=== PATIENT | male | born 1990 | race Hispanic/Latino ===

== ENCOUNTER 2016-08-21 01:10 | Inpatient (IN) | payer OTHER ==
[~2016-08-21] VITALS: Ht 157.5 cm; Wt 140.8 kg
[2016-08-21] VITALS (16 sets, daily range): BP systolic 110–177; BP diastolic 54–106; PULSE 90–130; RESP 16–28; O2SAT 88–100
--- NOTE | 2016-08-21 01:26 | ED.REPORT ---
HPI-Overdose/Alcohol Toxicity Date of Service Aug 21, 2016 ED Provider: Andre Zazueta MD Patient is a 25 year old male with a history of polysubstance abuse who presents to the ED after an accidental drug overdose this morning. Patient was found to be unresponsive by his significant other, with pinpoint pupils. He was given 2mg nasal Narcan by EMS, with the patient becoming more responsive after administration. EMS believe that he aspirated, finding vomit in his mouth and an O2 sat is in the 80s. Per EMS report the patient admitted to heroin use, in addition to "other stuff". On arrival to the ED, the patient is awake and alert. He reports taking Suboxone this evening, in addition to 6x tablets of Neurontin. Patient admits to using more Neurontin than what he is prescribed. Patient denies using IV heroin and states that he has not used heroin or other opiates for some time. Patient states that the Suboxone was prescribed to him and he was not aware that he should not mix it with Neurontin. He does not remember where he was prescribed Suboxone. History is somewhat limited by his sedated state. Patient's significant other was later present in the ED. She confirms that patient has a history of heroin abuse, but she is not aware of any current narcotic abuse. Patient has informed the patient previously that if he starts using again she will leave him. She states that he has only been going to appointments at [facility] and the [facility]. She is not aware of the patient being prescribed Suboxone and does not believe he has ever been to [facility], [facility], or any other facility that prescribes Suboxone. Nursing Notes Stated Complaint: UNRESPONSIVE, HEROIN Chief Complaint: Substance Abuse Nursing Notes Reviewed: Yes Allergies: Uncoded Allergies: STRAWBERRIES (Allergy, Severe, anaphylaxsis, 08/21/16) General Time Seen by Provider: 01:25 Chief Complaint Drug overdose Modifying Factors: Accidental Hx Obtained From: Patient, EMS Unable to Obtain Hx: Intoxicated Arrived By: Ambulance Onset Occurred: 1 - 4 hours ago Symptom Duration: Since onset Severity: Current: No pain currently Severity: Maximum: No pain Recent Healthcare: No recent doctor visit, No recent hospitalization Similar Sx Previous: No Past Medical History Past Medical History Reports: IV Drug use, Morbid Obesity Past Surgical History none reported Smoking History Current Every Day Smoker Social History Alcohol Use: "Social" Drug Use: IV drugs Other Social History: Good social support, Local resident Ambulatory Status Independent Review of Systems Unable to Obtain ROS Patient condition, Intoxicated (limited by sedation) Physical Exam Initial Vital Signs Vital Signs (First) Date Time Temp Pulse Resp B/P Pulse Ox O2 Delivery O2 Flow Rate FiO2 08/21/16 01:16 36.7 109 20 177/104 100 Nasal Cannula 3.5 Initial VS: Reviewed, Vital signs abnormal Neck: Supple, Full range of motion Extremities: Vascular intact, Neuro intact, No swelling Skin: Warm, Dry, No cyanosis General/Constitutional: Awake Alertness: Positive: Somnolent (but arousable) Appearance / Presentation: Positive: Obese, morbidly Respiratory / Chest: Breath sounds NL, Breath sounds = bilat, No respiratory distress no accessory muscle use or tachypnea Cardiovascular: Regular rhythm, Heart sounds NL, No murmurs Heart Rate / Rhythm: Positive: Tachycardia (mild) Abdomen: Soft, Non-tender Neurologic: No motor deficits, No sensory deficits Psychiatric: Affect NL, Mood NL Head / Eyes: Atraumatic, Normocephalic Pupils: Positive: Pinpoint (1mm) ENT: Airway patent, Mucous membranes moist Skin: Warm, Dry Rash / Lesion Pattern: Negative: Track camargo (no inject sites noted) Interpretation & Diagnostics Interpretation & Diagnostics: Urine Drug Screen: Positive for opiates and cocaine, all else negative. Lab Results Interpretation Result Diagram: 08/21/16 0322 08/21/16 0322 Test 08/21/16 03:22 08/21/16 05:55 White Blood Count 12.6th/mm3 (3.8-10.1) Red Blood Count 5.25mil/mm3 (4.40-5.80) Hemoglobin 16.0g/dL (13.8-17.2) Hematocrit 46.1% (41.0-50.0) Mean Corpuscular Volume 87.8fL (81-100) Mean Corpuscular Hemoglobin 30.5pg (27.0-35.0) Mean Corpuscular Hemoglobin Concent 34.7% (32.0-37.0) Red Cell Distribution Width 14.1% (12.3-15.4) Platelet Count 261bil/L (150-400) Neutrophils (%) (Auto) 85.2% (40-74) Lymphocytes (%) (Auto) 9.3% (14-46) Monocytes (%) (Auto) 4.4% (4-12) Eosinophils (%) (Auto) 0.3% (0-5) Basophils (%) (Auto) 0.2% (0-3) Sodium Level 137mEq/L (134-144) Potassium Level 3.8mEq/L (3.5-5.2) Chloride Level 97mEq/L (97-108) Carbon Dioxide Level 24mmol/L (18-29) Blood Urea Nitrogen 18mg/dL (6-20) Creatinine 0.73mg/dL (0.76-1.27) Estimat Glomerular Filtration Rate 138mL/min (>59) Glucose Level 140mg/dL (60-99) Calcium Level 9.0mg/dL (8.5-10.1) Magnesium Level 2.1mg/dL (1.6-2.6) Total Bilirubin 0.3mg/dL (0.0-1.2) Aspartate Amino Transf (AST/SGOT) 50U/L (0-50) Alanine Aminotransferase (ALT/SGPT) 75U/L (0-44) Alkaline Phosphatase 89U/L (25-150) Troponin T 0.010ug/L (0.0-0.011) Total Protein 7.9g/dL (6.4-8.4) Albumin 4.5g/dL (3.4-5.0) Hold Rowan Top Tube Received (Received) Lab values outside NL range: no clinical significance. Lab Results Interpretation: Elevated white blood ECG Interpretation ECG Interpretation: Sinus tachycardia Time: 01:20 Interpreted by: ED physician Normal ECG Interpretation: No acute ischemic changes, Normal QRS X-Ray Chest Interpretation Chest Xray Interpretation: Impression: Peribronchial cuffing. No definite infiltrate. View: Portable Interpretation / Wet Read by: Wet read ED physician Chest Xray Interpretation: Impression: No definite infiltrate. Peribronchial cuffing. View: Portable (Repeat) Interpretation / Wet Read by: Wet read ED physician Reviewed Previous Films: No change Re-Eval/Medical Decision Med Decision/Clinical Course 25-year-old male who was found down unconscious with poor respiratory effort. O2 saturation was 78%. He vomited and was felt by the paramedics to have aspirated. He was given Narcan and suctioned, and he aroused. At that time he mentioned to them that he had used heroin and "some other stuff". He later denied to me that he used heroin, relating a completely untenable story about being on Suboxone. He also stated that he took 6 or 8 tablets of Neurontin, unknown milligrams. Chest x-ray did not show any definite infiltrates. His white count elevated at 12,600. He had significant O2 requirements initially, and had rhonchi and wheezes. He was given nebulized bronchodilators. He also required 2 additional doses of 0.4 mg Narcan IV. He denied repeatedly to me that he was using heroin and his says that she does not think he does. His drug screen however was positive for opiates and cocaine. He will be admitted to the hospitalist service for further respiratory observation and ongoing Narcan treatment if needed. Source of Hx: Old records Re-Evaluation/Progress #1: Time of Eval: 01:55 Re-Evaluation/Progress Note: Patient has become more sedated and will be given additional Narcan. Re-Evaluation/Progress #2: Time of Eval: 03:42 Patient Status: Condition improved Re-Evaluation/Progress Note: Rechecked the patient, who states that his breathing is improved. Patient states that he last used opiates quite some time ago. The patient states that he was seen at [facility] and is unable to clarify where he was seen. He is now accompanied by his signifcant other. She reports that the patient has a history of heroin abuse, but she is not aware of any current narcotic abuse. Patient has informed the patient previously that if he starts using again she will leave him. She states that he has only been going to appointments at [facility] and the [facility]. She is not aware of the patient being prescribed Suboxone and does not believe he has ever been to [facility], [facility], or any other facility that prescribes Suboxone. She states that the patient recently developed a cough and that he described the sensation of "razorblades in his lungs". Informed the patient that he will be admitted to the hospital for further care. Patient understands and agrees with this plan. All questions were addressed. Consultation : Referral / Consult Name: Tomasz Flores MD Consulted With: Hospitalist Call Returned at: 05:48 [employer] Supervisor: Will see patient, Agrees with eval, Agrees with plan, Accepts admit Note: Spoke with Dr. Fuimaono, hospitalist, who agrees to accept admit. Counseled Regarding: Diagnosis, Lab results, Need for admission Discharge & Departure Impression: Primary Impression: Accidental drug overdose Encounter type: initial encounter Qualified Code: T50.901A - Poisoning by unspecified drugs, medicaments and biological substances, accidental ( unintentional), initial encounter Additional Impressions: Hypoxia Aspiration pneumonitis Opiate abuse, episodic Disposition: ADMITTED TO HOSPITAL Discharge Condition All VS Reviewed: Yes Condition: Stable Crit Care Except Billable Proc Time Spent: 30-74 minutes Services Performed: Patient management by me, Time spent at bedside, Reviewing test results, Reviewing imaging, Discussing patient care, Documentation in record, Time with fam/surrogate Critical Care Notes: 25-year-old male with opiate overdose, hypoxemia, aspiration pneumonitis. He required multiple doses of Narcan. He will be admitted to [facility]. Scribe Attestation Portions of this note were transcribed by Nesha Batista. I, Dr. Zazueta personally performed the history, physical exam and medical decision-making; I reviewed and confirmed the accuracy of the information in the transcribed note. Signed by: Cassie Flores, 08/21/2016 0611 Andre Zazueta MD Aug 21, 2016 01:26 Nesha Batista Aug 21, 2016 01:29
[2016-08-21] MEDS: Ondansetron 2 mg/mL 2 mL Inj IVPUSH PRN ×2 (02:35→04:27)
[2016-08-21] MEDS ORDERED: 0.9% Sodium Chloride 1,000 ML IV ONE (03:00)
[2016-08-21 03:30] LABS: BASOPHILS % (AUTO) 0.2 % (0-3); EOSINOPHILS % (AUTO) 0.3 % (0-5); MONOCYTES % (AUTO) 4.4 % (4-12); Mean Corpuscular Hemoglobin 30.5 pg (27.0-35.0); Mean Corpuscular Volume 87.8 fL (81-100); NEUTROPHILS % (AUTO) 85.2 % (40-74); Platelet Count 261 bil/L (150-400)
[2016-08-21 03:52] LABS: TROPONIN T 0.01 ug/L (0.0-0.011)
[2016-08-21 04:03] LABS: Magnesium 2.1 mg/dL (1.6-2.6)
[2016-08-21] MEDS ORDERED: Albuterol-Ipratropium 3 mL Inhalation Solution NEB ONE (05:30)
[2016-08-21] MEDS ORDERED: Albuterol 2.5 mg/3 mL Inhalation Solution NEB ONE (05:30)
[2016-08-21] MEDS ORDERED: Naloxone 0.4 mg/mL 10 mL Inj IM PRN (06:25)
[2016-08-21] MEDS ORDERED: Alum-Mag Hydrox-Simeth 30 mL Suspension PO PRN ×2 (06:25→14:45)
[2016-08-21] MEDS ORDERED: Ondansetron 2 mg/mL 2 mL Inj IVPUSH PRN ×2 (06:25→14:45)
[2016-08-21] MEDS ORDERED: BUPR150T8 PO (06:39)
[2016-08-21] MEDS ORDERED: [UNRECOGNIZED DRUG - CODE] PO (06:39)
--- NOTE | 2016-08-21 06:52 | NUR ---
Admission Patient admitted to [facility] 2025 at 0630, accompanied by his spouse. Patient is alert and oriented, but confused about the date. Lungs clear to auscultation AP and bilaterally. Tele: Sinus tachycardia with rates in the 110s, no ectopy noted. Patient denies shortness of breath, SpO2 97% on 2L via nasal cannula. Patient does endorse some chest discomfort with deep breathing. Orientation to room and call light completed; med reconciliation complete and admit documentation started. Continue close monitoring.
--- NOTE | 2016-08-21 09:01 | DRSVH ---
PROCEDURE: X-RAY CHEST, TWO VIEWS ([id number]) INDICATIONS: repeat exam for aspiration pneumonia TECHNIQUE: 2 views of the chest were acquired. COMPARISON: [facility], CR, XR CHEST 2VW, 08/21/2016, 1:35. FINDINGS: Surgical changes and devices: None. Lungs and pleura: No effusion is seen. There is now patchy density posterior in the chest seen best l aterally overlying the mid thoracic spine. The appearance is most consistent with a right-sided lower lobe pneumonia. This is new since the previous chest x-ray. Mediastinum: Mediastinal contours are normal. Heart size is normal. Bones and chest wall: No suspicious bony abnormalities. Soft tissues appear unremarkable. IMPRESSION: Right lower lobe pneumonia now evident. Dictated by: Dejan Colin M.D. on 08/21/2016 at 8:58 Approved by: Dejan Colin M.D. on 08/21/2016 at 8:59
--- NOTE | 2016-08-21 09:06 | DRSVH ---
PROCEDURE: X-RAY CHEST, TWO VIEWS ([id number]) INDICATIONS: reduced respiration TECHNIQUE: 2 views of the chest were acquired. COMPARISON: None. FINDINGS: Surgical changes and devices: None. Lungs and pleura: No pleural effusions or pneumothorax. Lungs are clear. Mediastinum: Mediastinal contours are normal. Heart size is normal. Bones and chest wall: No suspicious bony abnormalities. Soft tissues appear unremarkable. IMPRESSION: Acute disease is not seen in the two-view chest currently. No evidence for pneumonia is i dentified. Dictated by: Dejan Colin M.D. on 08/21/2016 at 9:04 Approved by: Dejan Colin M.D. on 08/21/2016 at 9:05
--- NOTE | 2016-08-21 13:45 | NUR ---
Social Work: Screen D: Per EMR review, pt is a 25 year old male admitted for poly drug overdose, aspiration pneumonia. Pt is [facility] [employer] insurance. PCP Is not listed. NOK is pt's mother, amanda Flores. Advanced directives not yet offered to pt- SALES PERSON will follow up with pt when appropriate. Readmit score not entered at this time. Pt admitted for after accidental polysubstance overdose of heroin and Suboxone. Per H&P pt's spouse is not aware of pt's recent use. SALES PERSON attempted to meet with pt at bedside to complete CD assessment and provide resources. Pt requested SALES PERSON return at a later date to discuss further. SALES PERSON agreed. A: Pt who lives in [place] with his spouse. P: SALES PERSON to follow up with pt to complete CD assessment and provide CD resources. JERARDO Reeder
[2016-08-21] MEDS ORDERED: Polyethylene Glycol (PEG) 17 Gm Powder PO PRN (14:45)
--- NOTE | 2016-08-21 16:00 | PCM.HPMED ---
Subjective Date of Service Aug 21, 2016 Primary Provider: Admitting Physician: Tomasz Flores MD Primary Care Physician: Lamonte Attending Physician: Tomasz Flores MD Chief Complaint: Unintentional overdose History of Present Illness: Patient is a 25 year old male with a history of polysubstance abuse who presents to the ED after an accidental drug overdose this morning. Patient was found to be unresponsive by his , unconscious with poor respiratory effort and pinpoint pupils. He was given 2mg nasal Narcan by EMS, with the patient becoming more responsive after administration. EMS believe that he aspirated, finding vomit in his mouth and an O2 sat is in the 80s. Per EMS report the patient admitted to heroin use, in addition to "other stuff". On arrival to the ED, the patient was awake and alert. Patient admits to using more Neurontin than what he is prescribed and states he took 6 tablets this evening. He denies using IV heroin and states that he has not used heroin or other opiates for some time. He reports taking Suboxone thatevening, and states that the Suboxone was prescribed to him, but on investigation he has not been prescribed Suboxone from any facility that provides it. He does not remember where he was prescribed Suboxone. History is somewhat limited by his sedated state. Patient' s significant other was later present in the ED. She confirms that patient has a history of heroin abuse, but she is not aware of any current narcotic abuse. Today he reports chest pain when coughing as well as possible hemoptysis. On admission, he was afebrile, HR 130, BP 110/54, O2 92% on room air. WBC was 12.6, glucose 140, troponin was negative. Urine drug screen was positive in the ED for opiates and cocaine. CXR was initially negative but repeat CXR showed new right lower lobe pneumonia. Review of Systems: Comprehensive review of systems conducted and was negative except for the pertinent positives listed above. Allergies Uncoded Allergies: STRAWBERRIES (Allergy, Severe, anaphylaxsis, 08/21/16) Home Medications Bupropion 150 mg BID Gabapentin 600 mg daily PMH IV Drug use Morbid Obesity Surgical History None Family History Mother - Diabetes, stroke, ESRD on dialysis, has pacemaker Father - Stroke Social History Hx Alcohol Use: Yes Alcoholic Drinks Per Day: 18 beers day before yesterday, per ED report Hx Substance Use: Yes (Heroin) Smoking Status: Current Every Day Smoker (5 cigarettes per day) Exam Vital Signs Vital Sign - Last Date Time Temp Pulse Resp B/P Pulse Ox O2 Delivery O2 Flow Rate FiO2 08/21/16 12:13 36.6 130 23 110/54 92 Room Air 08/21/16 06:41 2.00 Intake and Output 08/20/16 08/20/16 08/21/16 Cumulative From/Thru 15:00 23:00 07:00 08/21/16 01:16 - 08/21/16 06:32 Intake Total 2000 ml 2000 ml Balance 2000 ml 2000 ml Intake IV Total 2000 ml 2000 ml Exam General: Alert, Oriented X3, Cooperative, No Acute Distress. Appears drowsy. Obese. Head: Normocephalic, atraumatic. External ears normal. Eyes: PERRLA, EOMI. Anicteric sclerae. Mouth: Mouth Normal, Mucous Membranes Moist/Jolly Neck: Neck supple with full range of motion. Chest & Lungs: Clear to auscultation bilaterally with no crackles, wheezes, or rhonchi. Cardiovascular: Regular Rate/Rhythm, Normal S1, Normal S2, No Murmurs/Rubs/ Gallops Abdomen: Non-tender, Non-distended, No masses, Normoactive bowel tones, Soft Musculoskeletal: Normal Range of Motion Extremities: No cyanosis/clubbing/edema bilaterally Neurological: Grossly Neurologically Intact, Normal Speech Lab and Diagnostics Result Diagram: 08/21/1632108/21/16 032 Assessment & Plan Patient is a 25 year old male with a history of polysubstance abuse who presents to the ED after an accidental drug overdose this morning. 1. Multiple drug overdose, acute. Present on admission. - Pt reports gabapentin and possible Suboxone overdose, as well as a large amount of alcohol. He denies daily alcohol but occasionally binge drinks on weekends such as this one. Despite denying other drug use, he tested positive for opiates and cocaine, so his history is suspect. He has not been receiving Suboxone from any of the local providers so it is uncertain where the Suboxone came from. He is stable from a respiratory standpoint. - Continue to monitor 2. Possible aspiration pneumonia. Present on admission. - Pt aspirated prior to admission. Initial CXR was negative but follow up CXR showed RLL infiltrate. WBC 12.6. Will follow CBC and procalcitonin for signs of infection - Sputum and blood cultures ordered - Zosyn q8h IV - Follow CBC and procalcitonin - Follow up CXR in AM 3. Hyperglycemia, acute. Present on admission. - BG 140 on admission. - Humalog low dose correctional scale - A1c ordered - Bowel regimen as needed - Antiemetic as needed OBSERVATION: Patient is admitted under observation status with expected length of stay less than 2 midnights due to severity of presenting symptoms, risk of adverse event, and complexity of treatment plan. VTE Prophylaxis: Sub-Q Heparin (Unfractionated) Resuscitation Status: CPR: Attempt Resuscitation Attending Statement 4. Morbid obesity. - Would recommend carbohydrate controlled diet while inpatient, given family history of diabetes and presentation of hyperglycemia The patient was seen and examined together with Dr. Adam on 08/21/2016 and I agree with the history, exam and plan as outlined in the note above. . Ramiro Adam Aug 21, 2016 16:00 Cullen Bueno MD Aug 21, 2016 16:46
[2016-08-21] MEDS: Heparin 5,000 Unit/mL Inj SUBQ SCH (16:48)
[2016-08-21] MEDS: 0.9% Sodium Chloride 1,000 ML IV SCH (16:48)
[2016-08-21] MEDS: Piperacillin-Tazo 3.375 Gm Inj 3.375 GM in Dextrose 5% Minibag Plus 50 ML IV SCH (16:50)
--- NOTE | 2016-08-21 18:46 | NUR ---
Neuros.. pt was somewhat somnolent this am but easily awakened and oriented x3. This afternoon has been awake, conversant, amb in room and visiting with family. Explained seriousness of his diagnosis. No scuicidal ideation noted. at bedside and supportive.
[2016-08-21] MEDS ORDERED: Ipratropium 0.02% 0.5 mg/2.5 mL Inhalation Solution NEB ONE (20:30)
[2016-08-22] VITALS (7 sets, daily range): BP systolic 113–142; BP diastolic 60–85; PULSE 91–108; RESP 16–20; O2SAT 95–99
[2016-08-22] MEDS: Piperacillin-Tazo 3.375 Gm Inj 3.375 GM in Dextrose 5% Minibag Plus 50 ML IV SCH ×3 (03:26→20:59)
[2016-08-22] MEDS: Heparin 5,000 Unit/mL Inj SUBQ SCH ×3 (03:26→16:23)
[2016-08-22] MEDS: 0.9% Sodium Chloride 1,000 ML IV SCH (03:28)
[2016-08-22 04:18] LABS: BASOPHILS % (AUTO) 0.2 % (0-3); EOSINOPHILS % (AUTO) 1.2 % (0-5); MONOCYTES % (AUTO) 9.4 % (4-12); Mean Corpuscular Hemoglobin 30.1 pg (27.0-35.0); Mean Corpuscular Volume 89.5 fL (81-100); NEUTROPHILS % (AUTO) 68.4 % (40-74); Platelet Count 235 bil/L (150-400)
--- NOTE | 2016-08-22 09:34 | DRSVH ---
PROCEDURE: X-RAY CHEST ONE VIEW, PORTABLE ([id number]) INDICATIONS: Aspiration pneumonia TECHNIQUE: One view of the chest was acquired. COMPARISON: [facility], CR, XR CHEST 2VW, 08/21/2016, 1:35. [facility], CR, XR CHEST 2VW, 08/21/2016, 3:57. FINDINGS: Surgical changes and devices: None. Lungs and pleura: No pleural effusions or pneumothorax. Lungs are clear. Mediastinum: Mediastinal contours appear normal. Heart size is normal. Bones and chest wall: No suspicious bony lesions. Overlying soft tissues appear unremarkable. IMPRESSION: Resolved aspiration versus pneumonia. Dictated by: Trey Darling RRA Interpreted: María Elena Ramirez MD on 08/22/2016 at 9:33 Transcribed by: PILAR on 08/22/2016 at 9:34 Approved by: María Elena Ramirez MD, PhD on 08/22/2016 at 11:47
--- NOTE | 2016-08-22 13:52 | PCM.PNMED ---
Subjective Date of Service Aug 22, 2016 Subjective Patient is a 25 year old male with a history of polysubstance abuse who presents to the ED after an accidental drug overdose. Overnight: Chest pain that is pleuritic. He was given one nebulizer treatment last night. This morning, he continues to have chest pain with coughing and deep breaths. It is on his right side. He rates it as a 7/10. He has a productive cough streaked with specks of blood. It was not improved after the nebulizer treatment overnight. He does not have fever or chills. He plans to seek treatment as an outpatient for his drug use, and declines speaking with social work at this time because he does not "want to be told something that he already knows." His chest pain has resolved this evening. Exam Vital Signs Vital Sign - Last Date Time Temp Pulse Resp B/P Pulse Ox O2 Delivery O2 Flow Rate FiO2 08/22/16 07:27 36.9 97 16 130/60 97 Room Air 08/21/16 06:41 2.00 Intake and Output 08/21/16 08/21/16 08/22/16 Cumulative From/Thru 15:00 23:00 07:00 08/21/16 01:16 - 08/22/16 06:12 Intake Total 480 ml 1175 ml 3655 ml Output Total 200 ml 1300 ml 1500 ml Balance 280 ml -125 ml 2155 ml Intake Oral 480 ml 1175 ml 1655 ml IV Total 2000 ml Output Urine Total 1300 ml 1300 ml Urine/Stool Mix 200 ml 200 ml # Voids 2 2 Exam General: Alert, Oriented X3, Cooperative, No Acute Distress. Obese. Head: Normocephalic, atraumatic. External ears normal. Eyes: PERRLA, EOMI. Anicteric sclerae. Mouth: Mouth Normal, Mucous Membranes Moist/[place] Neck: Neck supple with full range of motion. Chest & Lungs: Mild end-expiratory wheeze on right. Clear to auscultation on the left with no crackles, wheezes, or rhonchi. Cardiovascular: Regular Rate/Rhythm, Normal S1, Normal S2, No Murmurs/Rubs/ Gallops. No chest wall tenderness. Abdomen: Non-tender, Non-distended, No masses, Normoactive bowel tones, Soft Musculoskeletal: Normal Range of Motion Extremities: No cyanosis/clubbing/edema bilaterally Neurological: Grossly Neurologically Intact, Normal Speech IVs and Medications Medications Reviewed: Medications were reviewed in detail Lab and Diagnostics Result Diagram: 08/22/1634408/22/16 034 X-Rays, CTs and MRIs PROCEDURE: X-RAY CHEST, TWO VIEWS ([id number]) INDICATIONS: repeat exam for aspiration pneumonia TECHNIQUE: 2 views of the chest were acquired. COMPARISON: [facility], CR, XR CHEST 2VW, 08/21/2016, 1:35. FINDINGS: Surgical changes and devices: None. Lungs and pleura: No effusion is seen. There is now patchy density posterior in the chest seen best laterally overlying the mid thoracic spine. The appearance is most consistent with a right-sided lower lobe pneumonia. This is new since the previous chest x-ray. Mediastinum: Mediastinal contours are normal. Heart size is normal. Bones and chest wall: No suspicious bony abnormalities. Soft tissues appear unremarkable. IMPRESSION: Right lower lobe pneumonia now evident. Dictated by: Dejan Colin M.D. on 08/21/2016 at 8:58 PROCEDURE: X-RAY CHEST ONE VIEW, PORTABLE ([id number]) INDICATIONS: Aspiration pneumonia TECHNIQUE: One view of the chest was acquired. COMPARISON: [facility], CR, XR CHEST 2VW, 08/21/2016, 1:35. [facility], CR, XR CHEST 2VW, 08/21/2016, 3:57. FINDINGS: Surgical changes and devices: None. Lungs and pleura: No pleural effusions or pneumothorax. Lungs are clear. Mediastinum: Mediastinal contours appear normal. Heart size is normal. Bones and chest wall: No suspicious bony lesions. Overlying soft tissues appear unremarkable. IMPRESSION: Resolved aspiration versus pneumonia. Dictated by: Trey Darling RRMacho Interpreted: María Elena Ramirez MD on 08/22/2016 at 9 :33 Assessment & Plan Patient is a 25 year old male with a history of polysubstance abuse who presents to the ED after an accidental drug overdose this morning. 1. Multiple drug overdose, acute. Present on admission. Improving. - Pt reports gabapentin and possible Suboxone overdose, as well as a large amount of alcohol. He denies daily alcohol but occasionally binge drinks on weekends such as this one. Despite denying other drug use, he tested positive for opiates and cocaine, so his history is suspect. He has not been receiving Suboxone from any of the local providers so it is uncertain where the Suboxone came from. He is stable from a respiratory standpoint. - He reports interest in outpatient treatment but decline speaking with social work to help coordinate outpatient treatment - Continue to monitor 2. Aspiration pneumonia. Present on admission. Active. - Pt aspirated prior to admission. Initial CXR was negative but follow up CXR showed RLL infiltrate. WBC 12.6. Follow up chest x-ray this morning showed resolved RLL infiltrate, will follow with 2 view CXR tomorrow morning. - Procalcitonin increased this morning to 0.23 - Sputum and blood cultures ordered - Zosyn q8h IV - Follow CBC and procalcitonin - Follow up CXR in AM - Will follow CBC and procalcitonin for signs of infection 3. Hyperglycemia, acute. Present on admission. - BG 140 on admission. - Humalog low dose correctional scale - A1c ordered and pending 4. Chest pain, acute. Improving -It is likely secondary to RLL pneumonia seen on chest x-ray. -Troponin negative -EKG shows sinus tachycardia without any concerning ST changes, continue to monitor HR -Nebulizer treatment did not provide relief -Ibuprofen as needed for pain -Continue to monitor - Bowel regimen as needed - Antiemetic as needed Disposition: Likely discharge home tomorrow with oral antibiotics for aspiration pneumonia. Will reassess patient's willingness to talk to social work about help with coordinating outpatient treatment for substance abuse in the morning. VTE Prophylaxis: Sub-Q Heparin (Unfractionated) Resuscitation Status: CPR: Attempt Resuscitation Attending Statement The patient was seen and examined together with Dr. Brito on 08/22/2016 and I agree with the history, exam and plan as outlined in the note above. . Madeleine Brito DO Aug 22, 2016 08:32 Vimal Brasher MD Aug 22, 2016 19:26
--- NOTE | 2016-08-22 17:37 | NUR ---
symptom improvement patient A&Ox3, CIWA score was 4 this am, 2 this afternoon. reported a ZUÑIGA this morning, Tylenol effective to get rid of ZUÑIGA. denies pain or SOB this afternoon. patient able to shower today. independent in room, at bedside most of the day. continue to monitor.
--- NOTE | 2016-08-22 23:04 | NUR ---
Pain Pt reports that he has right sided chest pain when he coughs Given 975mg of PO tylenol. Pt currently resting quietly. No complaints.
[2016-08-23] MEDS: Heparin 5,000 Unit/mL Inj SUBQ SCH ×2 (00:05→08:23)
--- NOTE | 2016-08-23 00:15 | NUR ---
Transfer Telemetry removed. Pt transferred to 1019 via w/c. All belongings removed from room. Report given to Juice Mittal RN
[2016-08-23 00:32] VITALS: BP 135/66; PULSE 62; RESP 18; O2SAT 92
[2016-08-23] MEDS: Piperacillin-Tazo 3.375 Gm Inj 3.375 GM in Dextrose 5% Minibag Plus 50 ML IV SCH (04:44)
[2016-08-23 05:36] VITALS: BP 139/83; PULSE 76; RESP 20; O2SAT 99
[2016-08-23 06:33] LABS: BASOPHILS % (AUTO) 0.3 % (0-3); EOSINOPHILS % (AUTO) 2.8 % (0-5); MONOCYTES % (AUTO) 10.4 % (4-12); Mean Corpuscular Hemoglobin 30.2 pg (27.0-35.0); NEUTROPHILS % (AUTO) 57.6 % (40-74); Platelet Count 255 bil/L (150-400)
--- NOTE | 2016-08-23 07:44 | NUR ---
Rest Pt was able to rest throughout the shift.
[2016-08-23 11:16] VITALS: BP 146/94; PULSE 73; RESP 18; O2SAT 98
--- NOTE | 2016-08-23 11:32 | NUR ---
Social Work-chemical dependency assessment: Current Circumstances/reason for referral: Pt is a 25 y/o male who was admitted on 08/21/16 for poly substance overdose per H&P. Pt's insurance is [facility] and PCP is Anusha Stephens at [facility]. EMR reviewed. Per chart review, pt accidentally overdosed on gabapentin and suboxone. Pt also had positive tox screen for opiates and cocaine as well. Pt also has a history of binge drinking on the weekend SW met with pt at bedside to complete CD assessment and offer resources. History of Substance use: Pt states he has a history of ETOH, heroin, cocaine, and suboxone. Pt states he used heroin for about 5 years, and now has been doing this on an off for a while. Pt states that the cocaine was a one time thing this last weekend when he was partying with some friends. History of treatment: Pt has been to outpt treatment before through [facility]. Pt has never done inpt treatment. History of Withdrawal symptoms: Pt denies having any. Family history: done History of sobriety and supports: Pt states his girlfriend Yoanna and his mother are both good supports to him. Pt has not told them about his recent use and is not sure if he will do this or not. Pt's perception of use: Pt states there are lots of problems with his use: that he is in the hospital, almost dying, and developing aspiration pneumonia. Suicide risk: Pt denying any suicidal thoughts or actions. MACKENZIE asked pt about his overdose on medications and if this was an attempt to kill himself. Pt denied that this was a suicide attempt stating that he accidentally took too many medications. Motivation for treatment: Pt does not feel like his drinking is a problem and he just used drugs over the weekend with his friends. Plan:Pt denying that the overdose was a suicide attempt. Pt confirms that this was accidental and he took too many of his medications. Pt did admit to SW that he used heroin and cocaine this weekend while partying with his friends. Pt does not plan on using drugs again and is not interested in getting into a suboxone clinic at this time. Pt denying that his ETOH is a problem. Pt is willing to accept outpt resources for chemical dependency. MACKENZIE has provided him with these resources. Pt confirms that his family will be providing transport home when medically stable. MACKENZIE has updated MD. MACKENZIE will continue to follow. JERARDO Stern
--- NOTE | 2016-08-23 11:53 | PCM.DIMED ---
Discharge Instructions Date of Service Aug 23, 2016 Dates of Hospitalization Aug 21, 2016 at 05:55 Discharge Diagnosis Discharge Diagnosis Narcotic Overdose with Aspiration Pneumonia Diet Heart Healthy Activity No restrictions (Patient may resume usual activities gradually as tolerated.) Call your provider Fever or Chills, Shortness of breath, Bleeding, Chest pain, Vomitting, Excessive diarrhea, Weakness (unilateral) Patient Instructions Stop using all drugs and alcohol. Follow-up Provider: [facility] Follow-up with PCP in: 1 week Ovidio Huddleston MD Aug 23, 2016 11:53
--- NOTE | 2016-08-23 12:16 | NUR ---
Social Work-screening/discharge: Data:Pt is on day 2 of hospitalization for accidental poly drug overdose per H&P. Pt is medically stable to discharge home today. Pt has been up independent in his room per RN notes. SW completed CD assessment and outpt CD resources have been provided. Pt continues to deny that overdose was a suicide attempt, was accidental and that he just took too many of his medications. Pt's SO to provide transport home today. No other discharge needs identified. All updated and agreeable to plan. Assessment:Pt who is independent at baseline. Plan:Pt to discharge home today via POV. CD assessment completed and outpt CD resources have been provided. All updated and agreeable to plan. JERARDO Stern Addendum: 08/23/16 at 1430 by DAVI JOHNSON MACKENZIE also discussed DPOA/advanced directive, pt declining information at this time. JERARDO Stern
[2016-08-23] MEDS ORDERED: AMOX-366 PO (13:09)
--- NOTE | 2016-08-23 13:41 | NUR ---
Discharge Pt discharged to home with family via private vehicle at 1340 hrs. VSS. PIV removed intact. No c/o pain. All personal possessions sent with pt. Discharge and follow up instructions given to pt, and he expressed understanding.
--- NOTE | 2016-08-23 23:08 | PCM.DC.MED ---
Discharge Summary Date of Service Aug 23, 2016 Dates of Hospitalization Date of Hospital Admission Aug 21, 2016 at 05:55 Date of Discharge: Aug 23, 2016 Providers: Admitting Physician: Tomasz Flores MD Primary Care Physician: Nopmichael Attending Physician: Tomasz Flores MD Diagnosis at Time of Discharge Diagnosis at Time of Discharge Narcotic Overdose with Aspiration Pneumonia Procedures XRay, CTs & MRIs PROCEDURE: X-RAY CHEST, TWO VIEWS ([id number]) INDICATIONS: repeat exam for aspiration pneumonia TECHNIQUE: 2 views of the chest were acquired. COMPARISON: [facility], CR, XR CHEST 2VW, 08/21/2016, 1:35. FINDINGS: Surgical changes and devices: None. Lungs and pleura: No effusion is seen. There is now patchy density posterior in the chest seen best laterally overlying the mid thoracic spine. The appearance is most consistent with a right-sided lower lobe pneumonia. This is new since the previous chest x-ray. Mediastinum: Mediastinal contours are normal. Heart size is normal. Bones and chest wall: No suspicious bony abnormalities. Soft tissues appear unremarkable. IMPRESSION: Right lower lobe pneumonia now evident. Dictated by: Dejan Colin M.D. on 08/21/2016 at 8:58 PROCEDURE: X-RAY CHEST ONE VIEW, PORTABLE ([id number]) INDICATIONS: Aspiration pneumonia TECHNIQUE: One view of the chest was acquired. COMPARISON: [facility], CR, XR CHEST 2VW, 08/21/2016, 1:35. [facility], CR, XR CHEST 2VW, 08/21/2016, 3:57. FINDINGS: Surgical changes and devices: None. Lungs and pleura: No pleural effusions or pneumothorax. Lungs are clear. Mediastinum: Mediastinal contours appear normal. Heart size is normal. Bones and chest wall: No suspicious bony lesions. Overlying soft tissues appear unremarkable. IMPRESSION: Resolved aspiration versus pneumonia. Dictated by: Trey Darling [facility] Interpreted: María Elena Ramirez MD on 08/22/2016 at 9 :33 Brief History Patient is a 25 year old male with a history of polysubstance abuse who presents to the ED after an accidental drug overdose this morning. Patient was found to be unresponsive by his , unconscious with poor respiratory effort and pinpoint pupils. He was given 2mg nasal Narcan by EMS, with the patient becoming more responsive after administration. EMS believe that he aspirated, finding vomit in his mouth and an O2 sat is in the 80s. Per EMS report the patient admitted to heroin use, in addition to "other stuff". On arrival to the ED, the patient was awake and alert. Patient admits to using more Neurontin than what he is prescribed and states he took 6 tablets this evening. He denies using IV heroin and states that he has not used heroin or other opiates for some time. He reports taking Suboxone thatevening, and states that the Suboxone was prescribed to him, but on investigation he has not been prescribed Suboxone from any facility that provides it. He does not remember where he was prescribed Suboxone. History is somewhat limited by his sedated state. Patient' s significant other was later present in the ED. She confirms that patient has a history of heroin abuse, but she is not aware of any current narcotic abuse. Today he reports chest pain when coughing as well as possible hemoptysis. The patient was admitted to the hospital service for further evaluation and treatment. On admission, he was afebrile, HR 130, BP 110/54, O2 92% on room air. WBC was 12.6, glucose 140, troponin was negative. Urine drug screen was positive in the ED for opiates and cocaine. CXR was initially negative but repeat CXR showed new right lower lobe pneumonia. Hospital Course Patient is a 25 year old male with a history of polysubstance abuse who presents to the ED after an accidental drug overdose this morning. 1. Multiple drug overdose, acute. Present on admission. Improving. - Pt reports gabapentin and possible Suboxone overdose, as well as a large amount of alcohol. He denies daily alcohol but occasionally binge drinks on weekends such as this one. Despite denying other drug use, he tested positive for opiates and cocaine, so his history is suspect. He has not been receiving Suboxone from any of the local providers so it is uncertain where the Suboxone came from. He is stable from a respiratory standpoint. - He reports interest in outpatient treatment but decline speaking with social work to help coordinate outpatient treatment - computing services director visited with the patient today on the day of discharge and he admitted to them that he was partying and used heroin and cocaine along with drinking alcohol. He does not want his girlfriend to know this information. 2. Aspiration pneumonia. Present on admission. Active. - Pt aspirated prior to admission. Initial CXR was negative but follow up CXR showed RLL infiltrate. WBC 12.6. Follow up chest x-ray this morning showed resolved RLL infiltrate, will follow with 2 view CXR tomorrow morning. - Procalcitonin increased this morning to 0.23 - Sputum and blood cultures ordered - Zosyn q8h IV - Follow CBC and procalcitonin - Follow up CXR in AM - Will follow CBC and procalcitonin for signs of infection 3. Hyperglycemia, acute. Present on admission. - BG 140 on admission. - Humalog low dose correctional scale - A1c ordered and pending 4. Chest pain, acute. Improving -It is likely secondary to RLL pneumonia seen on chest x-ray. -Troponin negative -EKG shows sinus tachycardia without any concerning ST changes, continue to monitor HR -Nebulizer treatment did not provide relief -Ibuprofen as needed for pain -Continue to monitor - Bowel regimen as needed - Antiemetic as needed Disposition: Patient's repeat chest x-ray was negative for infiltrate and he is very anxious for discharge. We will discharge him home today on Augmentin. I advised him to get some new friends and to stay away from any illicit substances. Exam Vital Signs (Last) Date Time Temp Pulse Resp B/P Pulse Ox O2 Delivery O2 Flow Rate FiO2 08/23/16 11:16 36.6 73 18 146/94 98 Room Air 08/21/16 06:41 2.00 Test 08/21/16 03:22 08/21/16 05:55 08/21/16 20:48 08/23/16 06:20 Hemoglobin A1c 5.6% (4.8-5.6) Magnesium Level 2.1mg/dL (1.6-2.6) Hold Rowan Top Tube Received (Received) Hold Urine Received (Received) Troponin T 0.010ug/L (0.0-0.011) White Blood Count 7.5th/mm3 (3.8-10.1) Red Blood Count 4.83mil/mm3 (4.40-5.80) Hemoglobin 14.6g/dL (13.8-17.2) Hematocrit 43.0% (41.0-50.0) Mean Corpuscular Volume 89.0fL (81-100) Mean Corpuscular Hemoglobin 30.2pg (27.0-35.0) Mean Corpuscular Hemoglobin Concent 34.0% (32.0-37.0) Red Cell Distribution Width 14.0% (12.3-15.4) Platelet Count 255bil/L (150-400) Neutrophils (%) (Auto) 57.6% (40-74) Lymphocytes (%) (Auto) 27.3% (14-46) Monocytes (%) (Auto) 10.4% (4-12) Eosinophils (%) (Auto) 2.8% (0-5) Basophils (%) (Auto) 0.3% (0-3) Sodium Level 137mEq/L (134-144) Potassium Level 4.4mEq/L (3.5-5.2) Chloride Level 101mEq/L (97-108) Carbon Dioxide Level 25mmol/L (18-29) Blood Urea Nitrogen 11mg/dL (6-20) Creatinine 0.66mg/dL (0.76-1.27) Estimat Glomerular Filtration Rate 155mL/min (>59) Glucose Level 150mg/dL (60-99) Calcium Level 8.7mg/dL (8.5-10.1) Total Bilirubin 0.3mg/dL (0.0-1.2) Aspartate Amino Transf (AST/SGOT) 29U/L (0-50) Alanine Aminotransferase (ALT/SGPT) 42U/L (0-44) Alkaline Phosphatase 87U/L (25-150) Total Protein 6.8g/dL (6.4-8.4) Albumin 3.8g/dL (3.4-5.0) Procalcitonin 0.15ng/mL (0.00-0.08) Discharge Medications Discharge Medications Amoxicillin/Clav K 875-125 mg (Augmentin 875-125 mg) 1 Each Tablet 1 TABLET PO BID Prescribed by: EMERSON HUDDLESTON MD Bupropion ER (Wellbutrin SR) 150 Mg Tablet.er 150 MG PO BID (Reported) Gabapentin ER (Gralise) 600 Mg Tablet 600 MG PO DAILY (Reported) Followup Plan Disposition: Patient is being discharged home. Discharge Diet: Heart Healthy Discharge Activity: No restrictions (Patient may resume usual activities gradually as tolerated.) Patient Instructions Stop using all drugs and alcohol. Follow-up Provider: [facility] Follow-up with PCP in: 1 week Time spent Time spent on discharging this patient was greater than 35 minutes, over half of which was involved in counseling and coordination of care. Ovidio Huddleston MD Aug 23, 2016 23:08
== END 2016-08-23 13:35 | disposition home or self-care (01) | DRG 917 ==
LOC: SED 01:10 → PCC 05:55 → OSC 08-22 23:54
PROVIDERS: ADMIT Hospitalist; ATTEND Internal Medicine
DX: T50.7X1A Poisoning by analeptics and opioid receptor antagonists, accidental (unintentional), initial encounter (principal); J69.0 Pneumonitis due to inhalation of food and vomit; R09.02 Hypoxemia; T42.6X1A Poisoning by other antiepileptic and sedative-hypnotic drugs, accidental (unintentional), initial encounter; T51.0X1A Toxic effect of ethanol, accidental (unintentional), initial encounter; F11.10 Opioid abuse, uncomplicated; F17.210 Nicotine dependence, cigarettes, uncomplicated; R73.9 Hyperglycemia, unspecified; Y92.009 Unspecified place in unspecified non-institutional (private) residence as the place of occurrence of the external cause